=== PATIENT | male | born 1990 | race Caucasian/White ===

== ENCOUNTER 2019-10-03 13:33 | Emergency (ER) | payer OTHER ==
[~2019-10-03] VITALS: Ht 162.6 cm; Wt 64.0 kg
== END 2019-10-03 14:46 | disposition home or self-care (01) ==
LOC: ER 13:33
DX: S00.01XA Abrasion of scalp, initial encounter (principal); W26.8XXA Contact with other sharp object(s), not elsewhere classified, initial encounter; Y93.89 Activity, other specified; Y92.89 Other specified places as the place of occurrence of the external cause; Y99.8 Other external cause status